=== PATIENT | male | born 1985 | race Two or more races ===

== ENCOUNTER 2017-09-17 00:21 | Emergency (ER) | payer SELFPAY ==
[~2017-09-17] VITALS: Ht 162.6 cm; Wt 75.0 kg
[2017-09-17 02:03] VITALS: BP 121/74
== END 2017-09-17 02:10 | disposition home or self-care (01) ==
LOC: EMS 00:22
DX: F12.929 Cannabis use, unspecified with intoxication, unspecified (principal)
CPT/HCPCS: 99283